=== PATIENT | male | born 1960 | race Hispanic/Latino ===

== ENCOUNTER 2019-07-13 01:34 | Emergency (ER) | payer OTHER ==
[~2019-07-13] VITALS: Ht 167.6 cm; Wt 84.0 kg
[2019-07-13] MEDS ORDERED: METFORMIN850 MG PO (01:49)
[2019-07-13] MEDS ORDERED: NOVOLOG MIX100 U/ML SC (01:50)
[2019-07-13] MEDS ORDERED: VOLTAREN - GENE75 MG PO (03:36)
[2019-07-13] MEDS ORDERED: TRAMADOL HCL50 MG PO (03:36)
[2019-07-13 04:02] VITALS: BP 149/74
== END 2019-07-13 04:02 | disposition home or self-care (01) | DRG 605 ==
LOC: ED 01:34
DX: S70.02XA Contusion of left hip, initial encounter (principal); S76.012A Strain of muscle, fascia and tendon of left hip, initial encounter; S86.912A Strain of unspecified muscle(s) and tendon(s) at lower leg level, left leg, initial encounter; W17.89XA Other fall from one level to another, initial encounter; Y93.89 Activity, other specified; Y92.481 Parking lot as the place of occurrence of the external cause; Y99.0 Civilian activity done for income or pay